=== PATIENT | female | born 1960 | race Caucasian/White ===

== ENCOUNTER 2021-08-26 10:57 | Inpatient (IN) | payer MEDICARE, OTHER ==
[~2021-08-26] VITALS: Ht 167.6 cm; Wt 58.6 kg
--- NOTE | 2021-08-26 10:59 | NUR ---
PT IS IN ROOM #1B. DR DAVIS EVALUTED THE PT.
[2021-08-26] MEDS ORDERED: DONE10TA44 PO (11:05)
[2021-08-26] MEDS ORDERED: MEMA10TA PO (11:05)
[2021-08-26] MEDS ORDERED: CITA10TA9 PO (11:05)
[2021-08-26] MEDS ORDERED: LEVO50TA8 PO (11:05)
[2021-08-26] MEDS ORDERED: ERGO500040 PO (11:05)
[2021-08-26] MEDS ORDERED: GABA-532 PO (11:05)
[2021-08-26 12:12] LABS: HEMATOCRIT 44.2 % (31.2-41.9); MEAN CORPUSCULAR HEMOGLOBIN 30.9 uug (24.7-32.8); MEAN CORPUSCULAR VOLUME 92.8 fL (75.5-95.3); PLATELET COUNT (AUTO) 206 K/uL (179-408)
[2021-08-26 12:17] LABS: *BILIRUBIN,URIN NEGATIVE (NEGATIVE); *CLARITY,URINE CLEAR (CLEAR); *COLOR,URINE YELLOW (YELLOW); *KETONES,URINE NEGATIVE (NEGATIVE); *UROBILINOGEN,URINE 0.2 E.U./dl (NORMAL); LEUKOCYTE ESTERASE ,URINE 1+ (NEGATIVE); NITRITE, URINE NEGATIVE (NEGATIVE); UGLUCOSE NEGATIVE (NEGATIVE)
[2021-08-26 12:19] LABS: *BLOOD, URINE TRACE (NEGATIVE)
[2021-08-26 12:29] LABS: ALANINE AMINOTRANSFERASE 23 U/L (14-59); ALKALINE PHOSPHATASE 57 U/L (50-136); ASPARTATE AMINOTRANSFERASE 14 U/L (15-37); BILIRUBIN,DIRECT 0.1 mg/dL (0.0-0.2); BILIRUBIN,TOTAL 0.5 mg/dL (0.2-1.0); CARBON DIOXIDE 29 mmol/L (21-32); CHLORIDE 105 mmol/L (98-107); CREATININE 0.8 mg/dL (0.6-1.3); GLUCOSE 90 mg/dL (74-106); POTASSIUM 4.1 mmol/L (3.5-5.1); TOTAL PROTEIN, SERUM 7.3 g/dL (6.4-8.2); UREA NITROGEN, BLOOD 14 mg/dL (7-18)
[2021-08-26 12:33] LABS: *AMPHETAMINE, URINE NEGATIVE (NEGATIVE); *CANNABINOID, URINE NEGATIVE (NEGATIVE); *COCCAINE, URINE NEGATIVE (NEGATIVE); *OPIATE, URINE NEGATIVE (NEGATIVE); *PHENCYCLIDINE SCREEN,URINE NEGATIVE (NEGATIVE)
[2021-08-26] MEDS ORDERED: NITROFURANTOIN/NITROFURAN MAC 100 MG CAPSULE PO ONE ×2 (13:15→13:45)
--- NOTE | 2021-08-26 13:30 | NUR ---
Admitted patient to med surg for UTI and AMS. Patient is alert to self, very labile and confused. Occasionally able to answer questions appropriately and make needs known such as need to use the toilet. She is unable to answer most assessment questions. Right AC [address], patent and intact. NO SOB, no c/o pain. Gait is steady but SBA needed due to confusion. Patient is unable to recognize the bathroom and unable to comprehend how to open the door. Bed alarm in place. Call light within reach.
[2021-08-26] MEDS ORDERED: GABA300C PO (14:09)
--- NOTE | 2021-08-26 14:57 | NUR ---
Report received from Dominic for incoming Med surg admission.
[2021-08-26 15:14] VITALS: BP 141/81
[2021-08-26] MEDS ORDERED: MAGNESIUM HYDROXIDE 30 ML LIQUID UDC PO PRN (16:30)
[2021-08-26] MEDS ORDERED: IBUPROFEN 400 MG TABLET PO PRN (16:30)
[2021-08-26] MEDS ORDERED: ACETAMINOPHEN 325 MG TABLET PO PRN (16:30)
[2021-08-26] MEDS: GABAPENTIN 300 MG CAPSULE PO SCH (17:12)
[2021-08-26] MEDS: MEMANTINE HCL 10 MG TABLET PO SCH (17:12)
[2021-08-26] MEDS: CEFTRIAXONE 1 G in IV DEXTROSE 5% 50 ML IV SCH (17:12)
[2021-08-26] MEDS: IV 1/2NS 1000 ML 1,000 ML IV PRN (17:13)
[2021-08-26 17:15] LABS: BACTERIA,URINE FEW /HPF (NONE SEEN); RBC,URINE 0-3 /HPF (0-3); SQUAMOUS EPITHELIAL CELL,UR FEW /HPF (NONE SEEN)
[2021-08-26 20:15] VITALS: BP 127/81
[2021-08-26] MEDS: DONEPEZIL 10 MG TABLET PO SCH (20:59)
[2021-08-26] MEDS: DOCUSATE SODIUM 100 MG CAPSULE PO SCH (20:59)
[2021-08-26] MEDS: TEMAZEPAM 15 MG CAPSULE PO PRN (20:59)
[2021-08-27 04:15] VITALS: BP 123/71
--- NOTE | 2021-08-27 05:05 | NUR ---
Patient still noted with confusion. Slight improvement noted. Occasionally able to follow directions, demonstration needed. In no acute respiratory distress. Patient points at left foot and states she has pain but unable to elaborate. Restoril provided as per request and nursing assessment. Patient slept well. 1/2 NS infusing by right AC 20 gauge IV. Patient is continent of bladder, reminders and SBA needed to walk to restroom. Bed alarm on, safety measures continued. Call light within reach.
[2021-08-27] MEDS: LEVOTHYROXINE SODIUM 25 MCG TABLET PO SCH (06:16)
[2021-08-27 06:27] LABS: HEMATOCRIT 42.7 % (31.2-41.9); MEAN CORPUSCULAR HEMOGLOBIN 31.5 uug (24.7-32.8); MEAN CORPUSCULAR VOLUME 92.3 fL (75.5-95.3); PLATELET COUNT (AUTO) 208 K/uL (179-408)
[2021-08-27 07:09] LABS: BILIRUBIN,TOTAL 0.5 mg/dL (0.2-1.0); CREATININE 0.7 mg/dL (0.6-1.3); MAGNESIUM 2.1 mg/dL (1.8-2.4); PHOSPHOROUS 3.7 mg/dL (2.5-4.9); POTASSIUM 3.8 mmol/L (3.5-5.1); TOTAL PROTEIN, SERUM 6.8 g/dL (6.4-8.2)
[2021-08-27] MEDS: CITALOPRAM 10 MG TABLET PO SCH (09:17)
[2021-08-27] MEDS: MEMANTINE HCL 10 MG TABLET PO SCH ×2 (09:17→16:42)
[2021-08-27] MEDS: FAMOTIDINE 20 MG TABLET PO SCH (09:17)
[2021-08-27] MEDS: GABAPENTIN 300 MG CAPSULE PO SCH ×3 (09:17→16:42)
[2021-08-27 12:00] VITALS: BP 141/88
[2021-08-27] MEDS: IV 1/2NS 1000 ML 1,000 ML IV PRN (12:44)
[2021-08-27 16:07] VITALS: BP 126/76
[2021-08-27] MEDS: CEFTRIAXONE 1 G in IV DEXTROSE 5% 50 ML IV SCH (16:41)
--- NOTE | 2021-08-27 19:15 | NUR ---
Received patient on bed, sitting, alert, oriented to self, confused. Not in labored breathing, with ongoing 1/2 NS 1L at 60cc/hr. Saftey precautions provided, call light placed within reach.
[2021-08-27 20:10] VITALS: BP 106/62
[2021-08-27] MEDS: DOCUSATE SODIUM 100 MG CAPSULE PO SCH (20:29)
[2021-08-27] MEDS: DONEPEZIL 10 MG TABLET PO SCH (20:29)
--- NOTE | 2021-08-27 20:35 | NUR ---
Complaint of pain at left lateral ankle, Ibuprofen 400mg PO given.
[2021-08-27] MEDS: ATORVASTATIN 10 MG TABLET PO SCH (20:36)
--- NOTE | 2021-08-27 21:00 | NUR ---
Patient sleeping, no signs of distress noted.
[2021-08-28 04:00] VITALS: BP 115/61
[2021-08-28] MEDS: LEVOTHYROXINE SODIUM 25 MCG TABLET PO SCH (06:04)
[2021-08-28] MEDS: FAMOTIDINE 20 MG TABLET PO SCH (08:32)
[2021-08-28] MEDS: MEMANTINE HCL 10 MG TABLET PO SCH ×2 (08:32→17:31)
[2021-08-28] MEDS: CITALOPRAM 10 MG TABLET PO SCH (08:32)
[2021-08-28] MEDS: GABAPENTIN 300 MG CAPSULE PO SCH ×3 (08:32→17:31)
[2021-08-28 11:53] VITALS: BP 117/69
[2021-08-28] MEDS: IV 1/2NS 1000 ML 1,000 ML IV PRN (12:45)
--- NOTE | 2021-08-28 14:46 | NUR ---
Called Art at the PET team to evalute patient per Valeriano Pacheco, Per Art he will be here.
--- NOTE | 2021-08-28 16:19 | NUR ---
Per Madeline patient does not meed criteria for PET evaluation, PET screening is cancelled.
[2021-08-28 16:24] VITALS: BP 134/95
[2021-08-28] MEDS: CEFTRIAXONE 1 G in IV DEXTROSE 5% 50 ML IV SCH (17:31)
[2021-08-28 20:00] VITALS: BP 98/60
[2021-08-28] MEDS: DONEPEZIL 10 MG TABLET PO SCH (20:24)
[2021-08-28] MEDS: ATORVASTATIN 10 MG TABLET PO SCH (20:24)
[2021-08-28] MEDS: TEMAZEPAM 15 MG CAPSULE PO PRN (20:24)
[2021-08-28] MEDS: DOCUSATE SODIUM 100 MG CAPSULE PO SCH (20:24)
[2021-08-29 04:25] VITALS: BP 112/78
[2021-08-29] MEDS: LEVOTHYROXINE SODIUM 25 MCG TABLET PO SCH (06:09)
[2021-08-29] MEDS: GABAPENTIN 300 MG CAPSULE PO SCH ×3 (09:15→17:26)
[2021-08-29] MEDS: CITALOPRAM 10 MG TABLET PO SCH (09:15)
[2021-08-29] MEDS: FAMOTIDINE 20 MG TABLET PO SCH (09:15)
[2021-08-29] MEDS: MEMANTINE HCL 10 MG TABLET PO SCH ×2 (09:15→17:00)
[2021-08-29] MEDS ORDERED: ACET325T53 PO (10:05)
[2021-08-29] MEDS ORDERED: ATOR10TA PO (10:05)
[2021-08-29] MEDS ORDERED: LEVO25TA9 PO (10:05)
[2021-08-29] MEDS ORDERED: DOCU-141 PO (10:05)
[2021-08-29] MEDS ORDERED: TEMA15CA PO (10:05)
[2021-08-29] MEDS ORDERED: FAMO20TA8 PO (10:05)
[2021-08-29] MEDS ORDERED: MULT-594 PO (10:05)
[2021-08-29] MEDS ORDERED: MAGN400O6 PO (10:05)
[2021-08-29 11:46] VITALS: BP 113/73
[2021-08-29 16:21] VITALS: BP 111/85
--- NOTE | 2021-08-29 16:21 | NUR ---
Report given to Chyna ASIF of [facility].
[2021-08-29] MEDS: CEFTRIAXONE 1 G in IV DEXTROSE 5% 50 ML IV SCH (17:33)
--- NOTE | 2021-08-29 17:41 | NUR ---
Patient refused Namenda. Will waste medication in waste bin.
--- NOTE | 2021-08-29 18:30 | NUR ---
Patient discharged from unit at 1820. IV site removed. ID badge removed. Discharge education provided.
== END 2021-08-29 18:20 | DRG 689 ==
LOC: ER 10:57 → MEDSURG3 13:45
PROVIDERS: ADMIT Internal Medicine; ATTEND Internal Medicine
DX: N39.0 Urinary tract infection, site not specified (principal); G92.8 Other toxic encephalopathy; E03.9 Hypothyroidism, unspecified; E78.5 Hyperlipidemia, unspecified; Z20.822 Contact with and (suspected) exposure to COVID-19; F03.90 Unspecified dementia, unspecified severity, without behavioral disturbance, psychotic disturbance, mood disturbance, and anxiety; Z79.890 Hormone replacement therapy; G62.9 Polyneuropathy, unspecified; M77.32 Calcaneal spur, left foot; J44.9 Chronic obstructive pulmonary disease, unspecified; M79.672 Pain in left foot; E67.3 Hypervitaminosis D; Z79.899 Other long term (current) drug therapy; R94.6 Abnormal results of thyroid function studies
CPT/HCPCS: 36415; 70450; 71045; 73620; 82652; 83735; 84100; 84443; 84484; 85025; 86850; 86900; 86901; 87086; 93005; 97161; A4663; G0378; J0696; J7042

== ENCOUNTER 2023-08-31 18:06 | Inpatient (IN) | payer MEDICARE, OTHER ==
[~2023-08-31] VITALS: Ht 165.1 cm; Wt 57.2 kg
[~2023-08-31 18:06] MED LIST: ACET325T53 PO; ATOR10TA PO; CITA10TA9 PO; DOCU-141 PO; DONE10TA44 PO; FAMO20TA8 PO; GABA300C PO; LEVO25TA9 PO; MAGN400O6 PO; MEMA10TA PO; MULT-594 PO; TEMA15CA PO
[2023-08-31 18:36] LABS: BASOPHILS # (AUTO) 0.1 K/UL (0.0-0.2); BASOPHILS % (AUTO) 0.7 % (0.0-2.0); EOSINOPHILS # (AUTO) 0.1 K/uL (0.0-0.7); EOSINOPHILS % (AUTO) 1.9 % (0.0-7.0); HEMATOCRIT 39.9 % (31.2-41.9); HEMOGLOBIN 13.3 g/dL (10.9-14.3); LYMPHOCYTES # (AUTO) 2.1 K/uL (0.8-4.8); LYMPHOCYTES % (AUTO) 27.9 % (20.5-51.5); MEAN CORPUSCULAR HEMOGLOBIN 31.3 uug (24.7-32.8); MEAN CORPUSCULAR HGB CONC 33 g/dL (32.3-35.6); MEAN CORPUSCULAR VOLUME 93.9 fL (75.5-95.3); MONOCYTES # (AUTO) 0.8 K/uL (0.1-1.30); MONOCYTES % (AUTO) 11.2 % (0.0-11.0); NEUTROPHILS # (AUTO) 4.4 K/uL (1.8-8.9); NEUTROPHILS % (AUTO) 58.3 % (38.5-71.5); PLATELET COUNT (AUTO) 259 K/uL (179-408); RED BLOOD CELL COUNT(AUTO) 4.25 MIL/uL (3.63-4.92); WHITE BLOOD COUNT (AUTO) 7.5 K/uL (3.8-11.8)
[2023-08-31 18:37] LABS: DIFFERENTIAL COMMENT 1
[2023-08-31] MEDS ORDERED: CLOT15CR36 TP (18:44)
[2023-08-31] MEDS ORDERED: ERGO2000 PO (18:44)
[2023-08-31] MEDS ORDERED: MULT-594 PO (18:44)
[2023-08-31] MEDS ORDERED: DOCU-141 PO (18:44)
[2023-08-31] MEDS ORDERED: TRIA60LO7 TP (18:44)
[2023-08-31] MEDS ORDERED: LORA5SOL38 PO (18:44)
[2023-08-31] MEDS ORDERED: DIVA125C5 PO (18:44)
[2023-08-31 18:45] LABS: CALCIUM 8.8 mg/dL (8.5-10.1); CARBON DIOXIDE 30 mmol/L (21-32); CHLORIDE 105 mmol/L (98-107); CREATININE 0.8 mg/dL (0.6-1.3); GLUCOSE 115 mg/dL (74-106); POTASSIUM 3.7 mmol/L (3.5-5.1); SODIUM SERUM 143 mmol/L (136-145); UREA NITROGEN, BLOOD 24 mg/dL (7-18)
[2023-08-31 18:51] LABS: ALANINE AMINOTRANSFERASE 25 U/L (14-59); ALBUMIN 3.2 g/dL (3.4-5.0); ALKALINE PHOSPHATASE 67 U/L (50-136); ASPARTATE AMINOTRANSFERASE 13 U/L (15-37); BILIRUBIN,DIRECT 0.1 mg/dL (0.0-0.2); BILIRUBIN,TOTAL 0.3 mg/dL (0.2-1.0); TOTAL PROTEIN, SERUM 6.6 g/dL (6.4-8.2)
[2023-08-31 18:53] LABS: ACETAMINOPHEN < 2.0 ug/mL (10-30); ETHANOL < 3 MG/DL (0-10)
[2023-08-31] MEDS ORDERED: OLANZAPINE 10 MG VIAL IM ONE (19:19)
[2023-08-31] MEDS: OLANZAPINE 10 MG VIAL IM ONE (19:21)
[2023-08-31 21:29] LABS: *BILIRUBIN,URIN NEGATIVE (NEGATIVE); *BLOOD, URINE 2+ (NEGATIVE); *CLARITY,URINE CLEAR (CLEAR); *COLOR,URINE YELLOW (YELLOW); *KETONES,URINE TRACE (NEGATIVE); *PROTEIN,URINE 1+ (NEGATIVE); *UROBILINOGEN,URINE 0.2 E.U./dl (NORMAL); LEUKOCYTE ESTERASE ,URINE TRACE (NEGATIVE); NITRITE, URINE POSITIVE (NEGATIVE); UGLUCOSE NEGATIVE (NEGATIVE)
[2023-08-31 21:30] LABS: BACTERIA,URINE FEW /HPF (NONE SEEN); WBC,URINE 0-3 /HPF (0-3)
[2023-08-31 21:37] LABS: *AMPHETAMINE, URINE NEGATIVE (NEGATIVE); *BARBITURATE, URINE NEGATIVE (NEGATIVE); *BENZODIAZEPINE, URINE NEGATIVE (NEGATIVE); *CANNABINOID, URINE NEGATIVE (NEGATIVE); *COCCAINE, URINE NEGATIVE (NEGATIVE); *OPIATE, URINE NEGATIVE (NEGATIVE); *PHENCYCLIDINE SCREEN,URINE NEGATIVE (NEGATIVE); FENTANYL, URINE NEGATIVE (NEGATIVE)
[2023-08-31 22:30] VITALS: BP 122/70; TEMP 98.2; O2SAT 98
[2023-08-31] MEDS ORDERED: MAGNESIUM HYDROXIDE 30 ML LIQUID UDC PO PRN (22:45)
[2023-08-31] MEDS ORDERED: MAG HYDROX/AL HYDROX/SIMETH 30 ML LIQUID UDC PO PRN (22:45)
[2023-08-31] MEDS ORDERED: ACETAMINOPHEN 325 MG TABLET-SA PATIENTS-PAIN ONLY PO PRN (23:00)
[2023-08-31] MEDS: BLOOD SUGAR DIAGNOSTIC 1 EACH STRIP VI ONE (23:02)
[2023-09-01] MEDS ORDERED: PERMETHRIN 5% CREAM 60 GM TUBE TP ONE (03:20)
[2023-09-01] MEDS: PERMETHRIN 5% CREAM 60 GM TUBE TP ONE (05:55)
[2023-09-01] MEDS: LEVOTHYROXINE SODIUM 25 MCG TABLET PO SCH (07:16)
[2023-09-01 08:11] VITALS: BP 103/53; TEMP 97.6; O2SAT 96
[2023-09-01 08:13] LABS: ALBUMIN 2.9 g/dL (3.4-5.0); BILIRUBIN,TOTAL 0.5 mg/dL (0.2-1.0); CALCIUM 8.6 mg/dL (8.5-10.1); CREATININE 0.6 mg/dL (0.6-1.3); POTASSIUM 3.9 mmol/L (3.5-5.1); TOTAL PROTEIN, SERUM 6.2 g/dL (6.4-8.2)
[2023-09-01] MEDS: DOCUSATE SODIUM 100 MG CAPSULE PO SCH (09:00)
[2023-09-01] MEDS: MULTIVITAMINS,THERAPEUTIC TABLET PO SCH (09:00)
[2023-09-01] MEDS: CHOLECALCIFEROL 1,000 UNIT TABLET PO SCH (09:00)
[2023-09-01] MEDS ORDERED: MEMANTINE HCL 10 MG TABLET PO SCH (09:00)
[2023-09-01] MEDS ORDERED: Medication Not On Formulary EA (Multivitamins (Multivitamin) 1 EACH) PO SCH (09:00)
[2023-09-01] MEDS ORDERED: ERGOCALCIFEROL PO SCH (09:00)
[2023-09-01] MEDS: FAMOTIDINE 20 MG TABLET PO SCH (09:00)
[2023-09-01] MEDS: GABAPENTIN 300 MG CAPSULE PO SCH (09:00)
[2023-09-01] MEDS: risperiDONE 0.5 MG TABLET PO SCH (11:58)
[2023-09-01] MEDS: DIVALPROEX 250 MG TABLET.DR PO SCH (11:58)
[2023-09-01 16:11] VITALS: BP 110/59; TEMP 98.2; O2SAT 20; O2SAT 98
[2023-09-01] MEDS: CEphaleXIN 500 MG CAPSULE PO SCH (17:25)
[2023-09-01] MEDS ORDERED: DONEPEZIL 10 MG TABLET PO SCH (21:00)
[2023-09-01] MEDS: ATORVASTATIN 10 MG TABLET PO SCH (21:42)
[2023-09-02 07:00] LABS: BASOPHILS % (AUTO) 0.8 % (0.0-2.0); EOSINOPHILS # (AUTO) 0.2 K/uL (0.0-0.7); HEMATOCRIT 40.1 % (31.2-41.9); HEMOGLOBIN 13.7 g/dL (10.9-14.3); LYMPHOCYTES # (AUTO) 1.8 K/uL (0.8-4.8); LYMPHOCYTES % (AUTO) 31.3 % (20.5-51.5); MEAN CORPUSCULAR HGB CONC 34 g/dL (32.3-35.6); MEAN CORPUSCULAR VOLUME 93.6 fL (75.5-95.3); MONOCYTES # (AUTO) 0.5 K/uL (0.1-1.30); MONOCYTES % (AUTO) 9.3 % (0.0-11.0); NEUTROPHILS # (AUTO) 3.2 K/uL (1.8-8.9); NEUTROPHILS % (AUTO) 54.6 % (38.5-71.5); PLATELET COUNT (AUTO) 217 K/uL (179-408); RED BLOOD CELL COUNT(AUTO) 4.29 MIL/uL (3.63-4.92); RED CELL DISTRIBUTION WIDTH 14.1 % (12.3-17.7); WHITE BLOOD COUNT (AUTO) 5.9 K/uL (3.8-11.8)
[2023-09-02 07:14] LABS: CALCIUM 8.4 mg/dL (8.5-10.1); CREATININE 0.7 mg/dL (0.6-1.3); MAGNESIUM 2.1 mg/dL (1.8-2.4); PHOSPHOROUS 3.9 mg/dL (2.5-4.9); POTASSIUM 3.8 mmol/L (3.5-5.1)
[2023-09-02 07:30] VITALS: BP 160/72; TEMP 97.8; O2SAT 98
[2023-09-02] MEDS: LORAZEPAM 0.5 MG TABLET PO PRN (13:38)
[2023-09-02] MEDS ORDERED: OLANZAPINE 10 MG VIAL IM ONE (15:15)
[2023-09-02] MEDS: OLANZAPINE 10 MG VIAL IM ONE (15:20)
[2023-09-02 20:00] VITALS: BP 108/71; TEMP 95.9; O2SAT 94
[2023-09-02] MEDS: TEMAZEPAM 7.5 MG CAPSULE PO PRN (22:36)
[2023-09-03 08:52] VITALS: BP 152/81; TEMP 98; O2SAT 98
[2023-09-03] MEDS: ENSURE ENLIVE (VAN) 240 ML LIQUID PO SCH (12:59)
[2023-09-03 15:43] VITALS: BP 141/62; TEMP 98; O2SAT 98
[2023-09-03] MEDS: risperiDONE 0.5 MG TABLET PO SCH ×2 (16:33→20:38)
[2023-09-04 07:39] LABS: BASOPHILS # (AUTO) 0.1 K/UL (0.0-0.2); EOSINOPHILS # (AUTO) 0.2 K/uL (0.0-0.7); EOSINOPHILS % (AUTO) 3.3 % (0.0-7.0); HEMATOCRIT 42.1 % (31.2-41.9); HEMOGLOBIN 14.2 g/dL (10.9-14.3); LYMPHOCYTES # (AUTO) 1.6 K/uL (0.8-4.8); LYMPHOCYTES % (AUTO) 27.1 % (20.5-51.5); MEAN CORPUSCULAR HEMOGLOBIN 31.7 uug (24.7-32.8); MEAN CORPUSCULAR HGB CONC 34 g/dL (32.3-35.6); MEAN CORPUSCULAR VOLUME 94.2 fL (75.5-95.3); MONOCYTES # (AUTO) 0.6 K/uL (0.1-1.30); MONOCYTES % (AUTO) 10.2 % (0.0-11.0); NEUTROPHILS # (AUTO) 3.5 K/uL (1.8-8.9); NEUTROPHILS % (AUTO) 58.4 % (38.5-71.5); PLATELET COUNT (AUTO) 221 K/uL (179-408); RED BLOOD CELL COUNT(AUTO) 4.47 MIL/uL (3.63-4.92); RED CELL DISTRIBUTION WIDTH 14.3 % (12.3-17.7)
[2023-09-04 07:41] LABS: DIFFERENTIAL COMMENT 1
[2023-09-04 07:51] LABS: ALBUMIN 3.2 g/dL (3.4-5.0); BILIRUBIN,TOTAL 0.5 mg/dL (0.2-1.0); CALCIUM 8.6 mg/dL (8.5-10.1); CREATININE 0.8 mg/dL (0.6-1.3); MAGNESIUM 2.2 mg/dL (1.8-2.4); POTASSIUM 4.1 mmol/L (3.5-5.1); TOTAL PROTEIN, SERUM 6.6 g/dL (6.4-8.2)
[2023-09-04 07:55] VITALS: BP 114/73; TEMP 98.2; O2SAT 96
[2023-09-04] MEDS: ACETAMINOPHEN 325 MG TABLET PO PRN (12:12)
[2023-09-04 17:01] VITALS: BP 122/74; TEMP 98; O2SAT 96
[2023-09-04 20:00] VITALS: BP 106/64; TEMP 98.3; O2SAT 96
[2023-09-04] MEDS: CALAMINE LOTION 120 ML BOTTLE TOP PRN (20:34)
[2023-09-05 08:48] VITALS: BP 128/70; TEMP 98.1; O2SAT 98
[2023-09-05 15:54] VITALS: BP 96/64; TEMP 98; O2SAT 98
[2023-09-05 19:59] VITALS: BP 112/68; TEMP 97.9; O2SAT 96
[2023-09-05] MEDS: risperiDONE 0.5 MG TABLET PO SCH (20:51)
[2023-09-06 08:15] VITALS: BP 119/72; TEMP 98.4; O2SAT 97
[2023-09-06 16:02] VITALS: BP 115/75; TEMP 98.2; O2SAT 97
[2023-09-06 19:51] VITALS: BP 124/68; TEMP 98.1; O2SAT 96
[2023-09-07 09:42] VITALS: BP 126/71; TEMP 98; O2SAT 98
[2023-09-07] MEDS: DIVALPROEX 250 MG TABLET.DR PO SCH (12:36)
[2023-09-07 15:45] VITALS: BP 132/71; TEMP 98; O2SAT 98
[2023-09-07 19:49] VITALS: BP 136/66; TEMP 98.2; O2SAT 96
[2023-09-08 07:46] VITALS: BP 120/68; TEMP 98.2; O2SAT 98
[2023-09-08] MEDS ORDERED: PERMETHRIN 5% CREAM 60 GM TUBE TP ONE (09:00)
[2023-09-08] MEDS: PERMETHRIN 5% CREAM 60 GM TUBE TP ONE (09:09)
[2023-09-08 11:02] LABS: BASOPHILS % (AUTO) 0.5 % (0.0-2.0); EOSINOPHILS # (AUTO) 0.1 K/uL (0.0-0.7); EOSINOPHILS % (AUTO) 1.2 % (0.0-7.0); HEMATOCRIT 42.9 % (31.2-41.9); HEMOGLOBIN 14.6 g/dL (10.9-14.3); LYMPHOCYTES # (AUTO) 0.9 K/uL (0.8-4.8); LYMPHOCYTES % (AUTO) 12.3 % (20.5-51.5); MEAN CORPUSCULAR HGB CONC 34 g/dL (32.3-35.6); MEAN CORPUSCULAR VOLUME 93.9 fL (75.5-95.3); MONOCYTES # (AUTO) 0.6 K/uL (0.1-1.30); MONOCYTES % (AUTO) 8.7 % (0.0-11.0); NEUTROPHILS # (AUTO) 5.6 K/uL (1.8-8.9); NEUTROPHILS % (AUTO) 77.3 % (38.5-71.5); PLATELET COUNT (AUTO) 220 K/uL (179-408); RED BLOOD CELL COUNT(AUTO) 4.57 MIL/uL (3.63-4.92); RED CELL DISTRIBUTION WIDTH 14.2 % (12.3-17.7); WHITE BLOOD COUNT (AUTO) 7.3 K/uL (3.8-11.8)
[2023-09-08 11:18] LABS: DIFFERENTIAL COMMENT 1
[2023-09-08 11:20] LABS: ALBUMIN 3.4 g/dL (3.4-5.0); BILIRUBIN,TOTAL 0.5 mg/dL (0.2-1.0); CALCIUM 9.5 mg/dL (8.5-10.1); CREATININE 0.9 mg/dL (0.6-1.3); POTASSIUM 3.9 mmol/L (3.5-5.1); TOTAL PROTEIN, SERUM 7.1 g/dL (6.4-8.2)
[2023-09-08 16:01] VITALS: BP 122/69; TEMP 98.2; O2SAT 96
[2023-09-08 20:00] VITALS: BP 120/65; TEMP 98.1; O2SAT 100
[2023-09-09 07:51] VITALS: BP 139/67; TEMP 98.2; O2SAT 96
[2023-09-09 15:20] VITALS: BP 116/74; TEMP 98.4; O2SAT 100
[2023-09-09 20:00] VITALS: BP 108/75; TEMP 97; O2SAT 98
[2023-09-10 09:14] VITALS: BP 120/85; TEMP 97.8; O2SAT 98
[2023-09-10 15:08] VITALS: BP 132/79; TEMP 98.2; O2SAT 98
[2023-09-10 20:00] VITALS: BP 130/79; TEMP 97.7; O2SAT 97
[2023-09-10] MEDS: MAGNESIUM HYDROXIDE 30 ML LIQUID UDC PO PRN (21:07)
[2023-09-11 08:18] VITALS: BP 116/60; TEMP 98; O2SAT 97
[2023-09-11 16:30] VITALS: BP 99/49; TEMP 97.9; O2SAT 95
[2023-09-11 22:45] VITALS: BP 103/49; TEMP 97.1; O2SAT 96
[2023-09-12 09:11] VITALS: BP 124/77; TEMP 98.6; O2SAT 97
[2023-09-12 16:53] VITALS: BP 127/72; TEMP 98.4; O2SAT 97
[2023-09-12 20:01] VITALS: BP 118/76; TEMP 98.1; O2SAT 96
[2023-09-13 08:33] VITALS: BP 112/66; TEMP 97.9; O2SAT 96
[2023-09-13 11:22] LABS: BASOPHILS % (AUTO) 0.4 % (0.0-2.0); EOSINOPHILS # (AUTO) 0.1 K/uL (0.0-0.7); EOSINOPHILS % (AUTO) 1.3 % (0.0-7.0); HEMATOCRIT 44.6 % (31.2-41.9); HEMOGLOBIN 15.2 g/dL (10.9-14.3); LYMPHOCYTES # (AUTO) 1.2 K/uL (0.8-4.8); MEAN CORPUSCULAR HGB CONC 34 g/dL (32.3-35.6); MEAN CORPUSCULAR VOLUME 93.8 fL (75.5-95.3); MONOCYTES # (AUTO) 0.6 K/uL (0.1-1.30); MONOCYTES % (AUTO) 8.8 % (0.0-11.0); NEUTROPHILS # (AUTO) 4.6 K/uL (1.8-8.9); NEUTROPHILS % (AUTO) 71.5 % (38.5-71.5); PLATELET COUNT (AUTO) 209 K/uL (179-408); RED BLOOD CELL COUNT(AUTO) 4.75 MIL/uL (3.63-4.92); WHITE BLOOD COUNT (AUTO) 6.4 K/uL (3.8-11.8)
[2023-09-13] MEDS: DIVALPROEX 250 MG TABLET.DR PO SCH (12:28)
[2023-09-13 16:28] VITALS: BP 116/73; TEMP 97.9; O2SAT 96
[2023-09-13] MEDS: ENSURE WITH FIBER 237 ML LIQUID (CHOCOLATE) PO SCH (16:36)
[2023-09-13 19:47] VITALS: BP 112/64; TEMP 98.1; O2SAT 95
[2023-09-14 08:24] VITALS: BP 117/74; TEMP 98.2; O2SAT 96
[2023-09-14 08:36] LABS: BASOPHILS # (AUTO) 0.1 K/UL (0.0-0.2); BASOPHILS % (AUTO) 0.9 % (0.0-2.0); EOSINOPHILS # (AUTO) 0.2 K/uL (0.0-0.7); EOSINOPHILS % (AUTO) 3.4 % (0.0-7.0); HEMATOCRIT 43.8 % (31.2-41.9); HEMOGLOBIN 15.1 g/dL (10.9-14.3); LYMPHOCYTES # (AUTO) 1.6 K/uL (0.8-4.8); MEAN CORPUSCULAR HEMOGLOBIN 32.5 uug (24.7-32.8); MEAN CORPUSCULAR HGB CONC 34 g/dL (32.3-35.6); MEAN CORPUSCULAR VOLUME 94.3 fL (75.5-95.3); MONOCYTES # (AUTO) 0.7 K/uL (0.1-1.30); MONOCYTES % (AUTO) 12.3 % (0.0-11.0); NEUTROPHILS # (AUTO) 3.5 K/uL (1.8-8.9); NEUTROPHILS % (AUTO) 57.4 % (38.5-71.5); PLATELET COUNT (AUTO) 212 K/uL (179-408); RED BLOOD CELL COUNT(AUTO) 4.65 MIL/uL (3.63-4.92); RED CELL DISTRIBUTION WIDTH 13.7 % (12.3-17.7); WHITE BLOOD COUNT (AUTO) 6.1 K/uL (3.8-11.8)
[2023-09-14 08:45] LABS: DIFFERENTIAL COMMENT 1
[2023-09-14 08:57] LABS: ALBUMIN 3.5 g/dL (3.4-5.0); BILIRUBIN,TOTAL 0.6 mg/dL (0.2-1.0); CREATININE 0.7 mg/dL (0.6-1.3); POTASSIUM 4.3 mmol/L (3.5-5.1); TOTAL PROTEIN, SERUM 7.3 g/dL (6.4-8.2)
[2023-09-14 15:43] VITALS: BP 139/89; TEMP 98; O2SAT 98
[2023-09-14 19:45] VITALS: BP 140/77; TEMP 98.1; O2SAT 96
[2023-09-15 07:30] VITALS: BP 146/89; TEMP 98; O2SAT 97
== END 2023-09-15 13:30 | DRG 885 ==
LOC: ER 18:09 → GPS 22:05
PROVIDERS: ADMIT Psychiatry & Neurology Psychosomatic Medicine; ATTEND Nurse Practitioner Acute Care
DX: F29 Unspecified psychosis not due to a substance or known physiological condition (principal); G93.41 Metabolic encephalopathy; N39.0 Urinary tract infection, site not specified; E44.1 Mild protein-calorie malnutrition; F02.82 Dementia in other diseases classified elsewhere, unspecified severity, with psychotic disturbance; F02.811 Dementia in other diseases classified elsewhere, unspecified severity, with agitation; G30.0 Alzheimer's disease with early onset; T65.91XS Toxic effect of unspecified substance, accidental (unintentional), sequela; H54.7 Unspecified visual loss; E78.5 Hyperlipidemia, unspecified; B86 Scabies; Z79.890 Hormone replacement therapy; Z79.899 Other long term (current) drug therapy; E88.09 Other disorders of plasma-protein metabolism, not elsewhere classified; I10 Essential (primary) hypertension; E03.9 Hypothyroidism, unspecified; Z88.1 Allergy status to other antibiotic agents; Z88.0 Allergy status to penicillin
CPT/HCPCS: 36415; 80164; 83735; 84100; 85025; A9150; C1758; G0480; J2358; J3490